=== PATIENT | female | born 2000 ===

== ENCOUNTER 2020-08-07 07:50 | Inpatient (IN) | payer MEDICAID ==
[~2020-08-07 07:50] MED LIST: EPINEPHrine 1 MG/1 ML Amp ONE; Sodium Bicarbonate 4.2% 2.5 MEQ/5 ML SDV ONE; Sodium Chloride 0.9% 20 ML SDV ONE; fentaNYL 100 MCG/2 ML SDV ITHECAL ONE
[2020-08-07] MEDS ORDERED: Acetaminophen 325 MG Tab PO PRN (07:51)
[2020-08-07] MEDS ORDERED: Sodium Chloride 0.9% 10 ML Syringe FLUSH PRN (07:51)
[2020-08-07] MEDS ORDERED: Carboprost Tromethamine 250 MCG/1 ML Amp IM PRN (07:53)
[2020-08-07] MEDS ORDERED: Methylergonovine 0.2 MG/1 ML Amp IM PRN (07:53)
[2020-08-07] MEDS ORDERED: Tranexamic Acid 1,000 MG in Sodium Chloride 0.9% 100 ML IV PRN (07:53)
[2020-08-07] MEDS ORDERED: Misoprostol 400 MCG (4 X 100 MCG TAB) RECTAL PRN (07:53)
[2020-08-07] MEDS ORDERED: Ondansetron 4 MG/2 ML SDV IVPUSH PRN (07:53)
[2020-08-07] MEDS ORDERED: Lidocaine 1% 30 ML SDV INJECT PRN (07:53)
[2020-08-07] MEDS ORDERED: Lactated Ringers 1,000 ML IV SCH (08:00)
[2020-08-07] MEDS ORDERED: Oxytocin/Normal Saline 30 UNIT/500 ML BAG IV SCH (08:00)
--- NOTE | 2020-08-07 08:57 | PCM.LDHP ---
L&D History of Present Illness - General Date of Service: 08/07/20 Admit Problem/Dx: Patient Status Order with Admit Dx/Problem 08/07/20 07:51 Patient Status [ADT] Routine Admission Diagnosis/Problem Admission Diagnosis/Problem Term - History of Present Illness Introduction:: Patient is a at 40w0d who presents to Labor and Delivery for induction of labor. Baby has been active. She denies vaginal bleeding, leakage of fluids. Denies headache, vision changes, abdominal pain, lower extremity edema. She has been having occasional contractions. has been uncomplicated. Dating based off LMP, confirmed with 17 week ultrasound. She smoked sporadically during the . Was on medical marijuana in the past but has not used during . She had some itching a couple weeks ago but cholestasis work up was negative. This has since resolved. 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 Working at [employer]. Planning on moving back to [place] after baby is born. H&P Review of Systems - Review of Systems: Review Of Systems: See Below General: Denies: Fever, Chills, Weakness HEENT: Denies: Headaches, Sore Throat, Visual Changes Pulmonary: Denies: Shortness of Breath, Cough Cardiovascular: Denies: Chest Pain, Edema, Lightheadedness Gastrointestinal: Denies: Abdominal Pain, Constipation, Diarrhea, Nausea, Vomiting Genitourinary: Denies: Discharge Skin: Denies: Rash Neurological: Denies: Dizziness, Headache, Weakness L&D Exam - Exam Exam: See Below - Vital Signs Weight: 202 lb - OB Specific Contraction Intensity: Mild Movement: Active Heart Tones: Present Heart Tones per Min: 145 Heart Rate (FHR) Variability: Moderate (6-25 bmp) Presentation: Vertex - Horn Score Horn Score Cervix Position: Posterior Horn Score Consistency: Soft Horn Score Effacement: 51-70% Horn Score Dilation: 1-2 cm Horn Score 's Station: -3 Horn Score Total: 5 - Exam General: Alert, Oriented HEENT: Mucosa Moist & [place] Neck: Supple, Trachea Midline Lungs: Clear to Auscultation, Normal Respiratory Effort Cardiovascular: Regular Rate, Regular Rhythm, Normal S1, Normal S2 GI/Abdominal Exam: Normal Bowel Sounds, Soft, Non-Tender Extremities: Normal Inspection, Non-Tender, No Pedal Edema, Normal Capillary Refill Skin: Warm, Dry Neurological: Reflexes Equal Bilateral Psychiatric: Alert, Normal Affect, Normal Mood - Patient Data Result Diagrams: 08/07/20 09:35 - Problem List (1) Term SNOMED Code(s): 17073702 ICD Code: Z34.90 - ENCNTR FOR SUPRVSN OF NORMAL , UNSP, UNSP TRIMESTER Status: Acute Current Visit: Yes (2) Primigravida SNOMED Code(s): 822735211 ICD Code: Z34.00 - ENCNTR FOR SUPRVSN OF NORMAL FIRST , UNSP TRIMESTER Status: Acute Current Visit: Yes (3) Maternal anemia in , antepartum SNOMED Code(s): 029664647 ICD Code: O99.019 - ANEMIA COMPLICATING , UNSPECIFIED TRIMESTER Status: Acute Current Visit: Yes (4) Thrombocytopenia affecting , antepartum SNOMED Code(s): 642454029 ICD Code: O99.119 - OTH DIS OF BLD/BLD-FORM ORG/IMMUN MECHNSM COMP PREG,UNSP TRI; D69.6 - THROMBOCYTOPENIA, UNSPECIFIED Status: Acute Current Visit: Yes Problem List Initiated/Reviewed/Updated: Yes Orders Last 24hrs: Active Orders 24 hr Category Date Time Status Patient Status [ADT] Routine ADT 08/07/20 07:51 Active Communication Order [RC] ASDIRECTED Care 08/07/20 07:51 Active Communication Order [RC] ASDIRECTED Care 08/07/20 07:53 Active Notify Provider Vital Signs OB [RC] ASDIRECTED Care 08/07/20 07:51 Active Notify Provider [RC] PRN Care 08/07/20 07:51 Active Notify Provider [RC] PRN Care 08/07/20 07:51 Active Notify Provider [RC] PRN Care 08/07/20 07:53 Active Notify Provider [RC] STAT Care 08/07/20 07:51 Active Peripheral IV Care [RC] . DIRECTED Care 08/07/20 07:51 Active Pump Management, Intrathecal [RC] ASDIRECTED Care 08/07/20 12:00 Active Up ad Tonya [RC] PER UNIT ROUTINE Care 08/07/20 07:51 Active Vaginal Exam [RC] PRN Care 08/07/20 07:51 Active Vital Signs [RC] PER UNIT ROUTINE Care 08/07/20 07:51 Active Clear Liquid Diet [DIET] Diet 08/07/20 Breakfast Active CBC W/O DIFF,HEMOGRAM [HEME] Routine Lab 08/07/20 07:51 Ordered CORONAVIRUS COVID-19 [place] [MOLEC] Stat Lab 08/07/20 08:15 Ordered Acetaminophen [TylenoL] Med 08/07/20 07:51 Active 650 mg PO Q4H PRN Carboprost Tromethamine [Hemabate DS] Med 08/07/20 07:53 Active 250 mcg IM ASDIRECTED PRN Lactated Ringers [Ringers, Lactated] 1,000 ml Med 08/07/20 08:00 Active IV ASDIRECTED Lactated Ringers [Ringers, Lactated] 1,000 ml Med 08/07/20 08:00 Active IV ASDIRECTED Lidocaine 1% [Xylocaine-MPF 1%] Med 08/07/20 07:53 Active 30 ml INJECT ASDIRECTED PRN Methylergonovine [Methergine] Med 08/07/20 07:53 Active 0.2 mg IM ASDIRECTED PRN Ondansetron [Zofran] Med 08/07/20 07:53 Active 4 mg IVPUSH Q4H PRN Oxytocin/Normal Saline [Pitocin in NS 30 UNIT/500 ML] Med 08/07/20 08:00 Active 30 unit in 500 ml IV TITRATE Oxytocin/Normal Saline [Pitocin in NS 30 UNIT/500 ML] Med 08/07/20 08:00 Active 30 unit in 500 ml IV TITRATE Sodium Chloride 0.9% [Saline Flush] Med 08/07/20 07:51 Active 10 ml FLUSH ASDIRECTED PRN Tranexamic Acid [Cyklokapron] 1,000 mg Med 08/07/20 07:53 Active Sodium Chloride 0.9% [Normal Saline] 100 ml IV ONETIME miSOPROStoL [Cytotec] Med 08/07/20 08:53 Ordered 25 mcg VAG Q4H PRN miSOPROStoL [Cytotec] Med 08/07/20 07:53 Active 800 mcg RECTAL ASDIRECTED PRN Peripheral IV Insertion Adult [OM.PC] Urgent Oth 08/07/20 07:51 Ordered Saline Lock Insert [OM.PC] Routine Oth 08/07/20 07:53 Ordered Resuscitation Status Routine Resus Stat 08/07/20 07:53 Ordered Medication Orders Acetaminophen (Acetaminophen 325 Mg Tab) 650 mg PO Q4H PRN PRN Reason: Pain/Fever Carboprost Tromethamine (Carboprost Tromethamine 250 Mcg/1 Ml Amp) 250 mcg IM ASDIRECTED PRN PRN Reason: HEMORRHAGE Lactated Ringer's (Ringers, Lactated) 1,000 mls @ 999 mls/hr IV ASDIRECTED YVES Oxytocin/Sodium Chloride (Pitocin In Ns 30 Unit/500 Ml) 30 unit in 500 mls @ 2 mls/hr IV TITRATE YVES; Protocol Lactated Ringer's (Ringers, Lactated) 1,000 mls @ 125 mls/hr IV ASDIRECTED YVES Tranexamic Acid 1,000 mg/ (Sodium Chloride) 110 mls @ 660 mls/hr IV ONETIME PRN PRN Reason: Bleeding Oxytocin/Sodium Chloride (Pitocin In Ns 30 Unit/500 Ml) 30 unit in 500 mls @ 2 mls/hr IV TITRATE YVES; Protocol Lidocaine HCl (Lidocaine 1% 30 Ml Sdv) 30 ml INJECT ASDIRECTED PRN PRN Reason: Perineal Repair Methylergonovine Maleate (Methylergonovine 0.2 Mg/1 Ml Amp) 0.2 mg IM ASDIRE CTED PRN PRN Reason: Hemorrhage Misoprostol (Misoprostol 400 Mcg (4 X 100 Mcg Tab)) 800 mcg RECTAL ASDIRECTED PRN PRN Reason: Hemorrhage Misoprostol (Misoprostol 25 Mcg (1/4 Of 100 Mcg) Tab) 25 mcg VAG Q4H PRN PRN Reason: Other Ondansetron HCl (Ondansetron 4 Mg/2 Ml Sdv) 4 mg IVPUSH Q4H PRN PRN Reason: Nausea/Vomiting Sodium Chloride (Sodium Chloride 0.9% 10 Ml Syringe) 10 ml FLUSH ASDIRECTED PRN PRN Reason: Keep Vein Open Assessment/Plan Comment:: Admit to Labor and Delivery. Cytotec X1 for induction. Pitocin for augmentation. AROM when able. GBS negative. Intrathecal as desired. Anticipate vaginal delivery. Alissa Wilhelm MD
[2020-08-07] MEDS ORDERED: fentaNYL 100 MCG/2 ML SDV ONE ×2 (09:43→21:05)
[2020-08-07] MEDS: Lactated Ringers 1,000 ML IV SCH ×2 (09:45→18:22)
[2020-08-07] MEDS: Misoprostol 25 MCG (1/4 of 100 MCG) Tab VAG PRN ×2 (10:14→14:05)
[2020-08-07] MEDS: Oxytocin/Normal Saline 30 UNIT/500 ML BAG IV SCH (18:39)
[2020-08-07] MEDS ORDERED: EPINEPHrine 1 MG/1 ML Amp ONE (21:05)
[2020-08-07] MEDS ORDERED: Sodium Bicarbonate 4.2% 2.5 MEQ/5 ML SDV ONE (21:06)
--- NOTE | 2020-08-07 21:33 | PCM.SN.2 ---
- Free Text/Narrative Note: Intrathecal. Sitting position, sterile prep and drape. 1% lidocaine w bicarb for skinwheal to L3 L4 interspace. Introducer, 24 ga pencan x 1. Pos CSF neg heme, neg parasthesia. 0.1 ml 1:1000 pf epi, 20 mcg pf sufenta, 30 mcg pf fentanyl, 0.4 ml pf NS and 6 mg of 0.75% pf bupivacaine injected after CSF aspiration. Pt to L lateral position. Procedure time 2109 to 2144
[2020-08-07] MEDS ORDERED: ePHEDrine 50 MG/ML SDV ONE (21:34)
[2020-08-07] MEDS ORDERED: ePHEDrine 50 MG/ML SDV IVPUSH PRN (21:40)
[2020-08-08] MEDS ORDERED: Zolpidem 5 MG Tab PO PRN (03:27)
[2020-08-08] MEDS ORDERED: Benzocaine/Menthol 20%-0.5% Spray 56 GM Canister TOP PRN (03:27)
[2020-08-08] MEDS ORDERED: Acetaminophen 325 MG Tab PO PRN (03:27)
[2020-08-08] MEDS ORDERED: Simethicone 80 MG Tab.Chew PO PRN (03:27)
[2020-08-08] MEDS ORDERED: Oxytocin 10 Units/1 ML SDV IM PRN (03:27)
--- NOTE | 2020-08-08 03:31 | PCM.DEL ---
L & D Note - General Info Date of Service: 08/08/20 Mother's Due Date: 08/07/20 - Delivery Note Labor: Augmented by Oxytocin Cervical Ripening Method: Misoprostil Delivery Outcome: Livebirth Infant Delivery Method: Spontaneous Vaginal Delivery-Single Delivery Mode: Spontaneous Presentation: Left Occiput Anterior (FABIAN) Nuchal Cord: None Prep: Povidone-Iodine (Betadine Anesthesia Type: Intrathecal Anesthetic: Lidocaine (Xylocaine) 1% Plain Local Anesthetic Volume: Other (8 cc) Amniotic Fluid Description: Meconium Stained Episiotomy Type: None Laceration: 1st Degree, Perineal Suture type: Vicryl Suture size: 3-0 Placenta: Intact, Spontaneous Cord: 3 Vessels Estimated Blood Loss: 350 Resuscitation Needed: No [place]: Bulb Syringe, Stimulated Provider: Alissa Wilhelm Score 1 min: 9 Score 5 min: 9 Delivery Comments (Free Text/Narrative):: Patient is a female who was admitted to L & D for elective induction of labor at 40w0d. was uncomplicated. She received 2 doses of Cytotec and was then started on Pitocin. She did have SROM for mec stained fluid. She received an intrathecal. She progressed to complete dilation and pushed for 2 hours. Viable female infant was delivered via . The anterior shoulder was delivered with gentle traction. The infant was placed on maternal abdomen and the cord was clamped and cut. Placenta was delivered intact via active management. Oxytocin was initiated immediately following the delivery of the placenta. Cervix, vagina, and perineum were explored. A 1st degree perineal laceration was repaired in the usual fashion. Mother and were stable and remained in the delivery room. - General Info Date of Service: 08/08/20 - Patient Data Vitals - Most Recent: Last Vital Signs Temp 96.2 F L 08/07/20 22:05 Pulse 74 08/07/20 22:45 Resp 12 08/07/20 22:45 BP 103/56 L 08/07/20 22:45 Pulse Ox 94 L 08/07/20 22:45 Weight - Most Recent: 202 lb I&O - Last 24 Hours: Intake & Output 08/07/20 08/07/20 08/08/20 14:59 22:59 06:59 Intake Total 2500 Output Total 680 Balance 1820 Lab Results Last 24 Hours: Laboratory Results - last 24 hr 08/07/20 08/07/20 Range/Units 08:15 09:35 WBC 11.5 H (5.0-10.0) 10^3/uL RBC 3.87 L (4.2-5.4) 10^6/uL Hgb 11.4 L (12.0-16.0) g/dL Hct 33.7 L (37.0-47.0) % MCV 87.1 (80-100) fL MCH 29.5 (27.0-34.0) pg MCHC 33.8 (33.0-35.0) g/dL Plt Count 110 L (150-450) 10^3/uL SARS-CoV-2 RNA ([place]) Negative (NEGATIVE) Med Orders - Current: Current Medications Acetaminophen (Acetaminophen 325 Mg Tab) 650 mg PO Q6H PRN PRN Reason: Mild Pain (1-3) or Fever Benzocaine/Menthol (Benzocaine/Menthol 20%-0.5% [place] 56 Gm Canister) 0 gm TOP Q4H PRN PRN Reason: Perineal comfort measures Carboprost Tromethamine (Carboprost Tromethamine 250 Mcg/1 Ml Amp) 250 mcg IM ASDIRECTED PRN PRN Reason: HEMORRHAGE Docusate Sodium (Docusate Sodium 100 Mg Cap) 100 mg PO BID PRN PRN Reason: Constipation Ferrous Sulfate (Ferrous Sulfate 325 Mg Tab) 325 mg PO WITHBREAKFAST YVES Lactated Ringer's (Ringers, Lactated) 1,000 mls @ 999 mls/hr IV ASDIRECTED [facility] Last Admin: 08/07/20 21:34 Dose: 999 mls/hr Documented by: Oxytocin/Sodium Chloride (Pitocin In Ns 30 Unit/500 Ml) 30 unit in 500 mls @ 2 mls/hr IV TITRATE YVES; Protocol Last Admin: 08/07/20 18:39 Dose: 2 munits/min, 2 mls/hr Documented by: Lactated Ringer's (Ringers, Lactated) 1,000 mls @ 125 mls/hr IV ASDIRECTED YVES Last Admin: 08/07/20 18:22 Dose: 125 mls/hr Documented by: Tranexamic Acid 1,000 mg/ (Sodium Chloride) 110 mls @ 660 mls/hr IV ONETIME PRN PRN Reason: Bleeding Oxytocin/Sodium Chloride (Pitocin In Ns 30 Unit/500 Ml) 30 unit in 500 mls @ 2 mls/hr IV TITRATE YVES; Protocol Ibuprofen (Ibuprofen 800 Mg Tab) 800 mg PO Q8H PRN PRN Reason: Cramping Lidocaine HCl (Lidocaine 1% 30 Ml Sdv) 30 ml INJECT ASDIRECTED PRN PRN Reason: Perineal Repair Last Admin: 08/08/20 02:59 Dose: 30 ml Documented by: Methylergonovine Maleate (Methylergonovine 0.2 Mg/1 Ml Amp) 0.2 mg IM ASDIRECTED PRN PRN Reason: Hemorrhage Misoprostol (Misoprostol 400 Mcg (4 X 100 Mcg Tab)) 800 mcg RECTAL ASDIRECTED PRN PRN Reason: Hemorrhage Ondansetron HCl (Ondansetron 4 Mg/2 Ml Sdv) 4 mg IVPUSH Q4H PRN PRN Reason: Nausea/Vomiting Last Admin: 08/07/20 22:04 Dose: 4 mg Documented by: Oxytocin (Oxytocin 10 Units/1 Ml Sdv) 10 unit IM ONETIME PRN PRN Reason: Bleeding Prenat Multivit/Lavonia/Iron/Folic Ac ( Multivitamin With Calcium/Folic Acid/Iron Tab) 1 each PO DAILY YVES Simethicone (Simethicone 80 Mg Tab.Chew) 80 mg PO Q4H PRN PRN Reason: Gas Sodium Chloride (Sodium Chloride 0.9% 10 Ml Syringe) 10 ml FLUSH ASDIRECTED PRN PRN Reason: Keep Vein Open Zolpidem Tartrate (Zolpidem 5 Mg Tab) 5 mg PO BEDTIME PRN PRN Reason: Insomnia Discontinued Medications Acetaminophen (Acetaminophen 325 Mg Tab) 650 mg PO Q4H PRN PRN Reason: Pain/Fever Ephedrine Sulfate (Ephedrine 50 Mg/Ml Sdv) Confirm Administered Dose 50 mg .ROUTE .STK-MED ONE Stop: 08/07/20 21:35 Last Admin: 08/07/20 21:46 Dose: Not Given Documented by: Ephedrine Sulfate (Ephedrine 50 Mg/Ml Sdv) 10 mg IVPUSH ONETIME PRN PRN Reason: Hypotension Last Admin: 08/07/20 21:38 Dose: 10 mg Documented by: Epinephrine HCl (Epinephrine 1 Mg/1 Ml Amp) Confirm Administered Dose 1 mg .ROUTE .STK-MED ONE Stop: 08/07/20 21:06 Last Admin: 08/07/20 21:47 Dose: Not Given Documented by: Fentanyl (Fentanyl 100 Mcg/2 Ml Sdv) Confirm Administered Dose 100 mcg .ROUTE .STK-MED ONE Stop: 08/07/20 09:44 Last Admin: 08/08/20 02:59 Dose: Not Given Documented by: Fentanyl (Fentanyl 100 Mcg/2 Ml Sdv) Confirm Administered Dose 100 mcg .ROUTE .STK-MED ONE Stop: 08/07/20 21:06 Last Admin: 08/07/20 21:48 Dose: Not Given Documented by: Misoprostol (Misoprostol 25 Mcg (1/4 Of 100 Mcg) Tab) 25 mcg VAG Q4H PRN PRN Reason: Other Last Admin: 08/07/20 14:05 Dose: 25 mcg Documented by: Sodium Bicarbonate (Sodium Bicarbonate 4.2% 2.5 Meq/5 Ml Sdv) Confirm Administered Dose 2.5 meq .ROUTE .STK-MED ONE Stop: 08/07/20 21:07 Last Admin: 08/07/20 21:48 Dose: Not Given Documented by: Sufentanil Citrate (Sufentanil 50 Mcg/1 Ml Amp) Confirm Administered Dose 50 mcg .ROUTE .STK-MED ONE Stop: 08/07/20 21:06 Last Admin: 08/07/20 21:48 Dose: Not Given Documented by: - Problem List & Annotations (1) Term SNOMED Code(s): 33472338 Code(s): Z34.90 - ENCNTR FOR SUPRVSN OF NORMAL , UNSP, UNSP TRIMESTER Status: Acute Current Visit: Yes (2) Primigravida SNOMED Code(s): 024638154 Code(s): Z34.00 - ENCNTR FOR SUPRVSN OF NORMAL FIRST , UNSP TRIMESTER Status: Acute Current Visit: Yes (3) Maternal anemia in , antepartum SNOMED Code(s): 838674454 Code(s): O99.019 - ANEMIA COMPLICATING , UNSPECIFIED TRIMESTER Status: Acute Current Visit: Yes (4) Thrombocytopenia affecting , antepartum SNOMED Code(s): 721752510 Code(s): O99.119 - OTH DIS OF BLD/BLD-FORM ORG/IMMUN MECHNSM COMP PREG,UNSP TRI; D69.6 - THROMBOCYTOPENIA, UNSPECIFIED Status: Acute Current Visit: Yes - Problem List Review Problem List Initiated/Reviewed/Updated: Yes - My Orders Last 24 Hours: My Active Orders 08/07/20 07:51 Patient Status [ADT] Routine Peripheral IV Care [RC] 08,20 Sodium Chloride 0.9% [Saline Flush] 10 ml FLUSH ASDIRECTED PRN Peripheral IV Insertion Adult [OM.PC] Urgent 08/07/20 07:53 Communication Order [RC] ASDIRECTED Carboprost Tromethamine [Hemabate DS] 250 mcg IM ASDIRECTED PRN Lidocaine 1% [Xylocaine-MPF 1%] 30 ml INJECT ASDIRECTED PRN Methylergonovine [Methergine] 0.2 mg IM ASDIRECTED PRN Ondansetron [Zofran] 4 mg IVPUSH Q4H PRN Tranexamic Acid [Cyklokapron] 1,000 mg Sodium Chloride 0.9% [Normal Saline] 100 ml IV ONETIME miSOPROStoL [Cytotec] 800 mcg RECTAL ASDIRECTED PRN Saline Lock Insert [OM.PC] Routine Resuscitation Status Routine 08/07/20 08:00 Lactated Ringers [Ringers, Lactated] 1,000 ml IV ASDIRECTED Lactated Ringers [Ringers, Lactated] 1,000 ml IV ASDIRECTED Oxytocin/Normal Saline [Pitocin in NS 30 UNIT/500 ML] 30 unit in 500 ml IV TITRATE Oxytocin/Normal Saline [Pitocin in NS 30 UNIT/500 ML] 30 unit in 500 ml IV TITRATE 08/07/20 20:25 Nitrous Oxide Delivery [RC] ASDIRECTED OB Discontinue Nitrous Oxide [RC] ASDIRECTED 08/08/20 03:00 Vital Signs [RC] PFP 08/08/20 03:27 Notify Provider Vital Signs OB [RC] ASDIRECTED Up ad Tonya [RC] ASDIRECTED Acetaminophen [TylenoL] 650 mg PO Q6H PRN Benzocaine/Menthol [Dermoplast Pain Relief [place]] See Dose Instructions TOP Q4H PRN Docusate Sodium [Colace] 100 mg PO BID PRN Ibuprofen [Motrin] 800 mg PO Q8H PRN Oxytocin [Pitocin] 10 unit IM ONETIME PRN Simethicone 80 mg PO Q4H PRN Zolpidem [Ambien] 5 mg PO BEDTIME PRN Assess Lochia [WOMSER] Per Unit Routine Assess Uterine Involution [WOMSER] Per Unit Routine Breast Pump [WOMSER] Per Unit Routine Ice Therapy [OM.PC] Per Unit Routine Perineal Care [OM.PC] Per Unit Routine Saline Lock Insert [OM.PC] Urgent Sitz Bath [OM.PC] Per Unit Routine 08/08/20 Breakfast Regular Diet [DIET] 08/08/20 08:00 Ferrous Sulfate 325 mg PO WITHBREAKFAST 08/08/20 09:00 Vit with Ca/FA/Iron [ Plus Iron] 1 each PO DAILY 08/08/20 Lunch Regular Diet [DIET] 08/08/20 Dinner Regular Diet [DIET] 08/09/20 06:00 CBC W/O DIFF,HEMOGRAM [HEME] Routine
[2020-08-08] MEDS ORDERED: Witch Hazel Medicated Pads 100/Jar TOP PRN (03:38)
[2020-08-08] MEDS: Oxytocin/Normal Saline 30 UNIT/500 ML BAG IV SCH (04:09)
[2020-08-08] MEDS: Ibuprofen 800 MG Tab PO PRN ×3 (04:27→21:27)
[2020-08-08] MEDS: Prenatal Multivitamin with Calcium/Folic Acid/Iron Tab PO SCH (12:56)
[2020-08-08] MEDS: Docusate Sodium 100 MG Cap PO PRN ×2 (12:56→21:26)
[2020-08-08] MEDS: Ferrous Sulfate 325 MG Tab PO SCH (13:02)
[2020-08-09] MEDS: Docusate Sodium 100 MG Cap PO PRN (09:04)
[2020-08-09] MEDS: Prenatal Multivitamin with Calcium/Folic Acid/Iron Tab PO SCH (09:05)
[2020-08-09] MEDS: Ibuprofen 800 MG Tab PO PRN (09:05)
[2020-08-09] MEDS: Ferrous Sulfate 325 MG Tab PO SCH (09:05)
--- NOTE | 2020-08-11 10:12 | DISCH ---
REASON FOR ADMISSION: Induction of labor at 40 weeks 0 day. OBSTETRIC HISTORY: The patient is a G1, P0, who has undergone an uncomplicated . Dating is based on last menstrual period, confirmed with 17-week ultrasound. DELIVERY: Sex: Female. Weight: 3700 g. 8# 2.5oz. scores: 9 and 9 at one and five minutes respectively. PROCEDURES: Intrapartum: No procedures required. PROBLEM LIST: 1. Term , 40 weeks 0 day. 2. Primi . 3. GBS negative. 4. Maternal anemia in . Hemoglobin on admission was 11.4. 5. Thrombocytopenia affecting . Platelet count on admission was 110. FINAL DIAGNOSES: 1. Encounter for induction of labor of a term at 40 weeks 0 day, resulting in delivery with a 3700 g viable female with scores of 9 and 9 at one and five minutes respectively at 40 weeks 1 day. 2. G1, P0-1-0-1. 3. Maternal anemia with hemoglobin at discharge 9.4. 4. EBL 350 mL. 5. Thrombocytopenia affecting . Platelets at discharge 234. 6. Group B Streptococcus negative. 7. First-degree perineal laceration repaired in the usual fashion. CONSULT AND REFERRAL: Anesthesia for intrathecal x1. DISCHARGE CONDITION: Good. PROGRESS NOTE: SUBJECTIVE: The patient is feeling very well this morning. She is feeling very happy and has had no issues or complaints overnight. She denies chest pain, shortness of breath, nausea, vomiting, fevers, chills. She is ambulating about her room without issue. She denies any light headedness, dizziness, pain in calves. She is voiding without issue, but has not had a bowel movement during this hospital stay. She is tolerating p.o. intake as appropriate. Her lochia is appropriate and her pain is well controlled. OBJECTIVE: Current Vital Signs: Temperature 98.9 degrees Fahrenheit, pulse 82 beats per minute and regular, blood pressure 133/69, respiratory rate 16 breaths per minute, O2 sat by pulse oximetry 100%. LABORATORY RESULTS AT DISCHARGE: WBC 14.1, RBC 3.24, hemoglobin 9.4, hematocrit 28.5, MCV 88.0, MCH 29.0, MCHC 33.0, platelet count 234. SARS-CoV-2 RNA ([place]) negative. PHYSICAL EXAMINATION: General: Appears pleasant, alert, and in no acute distress with an appropriate affect. Abdomen: Soft, nontender. Fundus is firm. Extremities: Nontender. Non-concerning scant lower extremity edema. ASSESSMENT AND PLAN: 1. Milli Bansal is a G1, now P1-0-0-1 status post spontaneous vaginal delivery with spontaneous rupture of membranes, who presented for elective induction of labor at 40 weeks 0 day. 2. Maternal well being: Meeting milestones. 3. well being: [place] [facility], , and will supplement with formula feeds as needed. 4. Disposition: Routine cares. Advance activity as tolerated. Discharge home day #1. 5. Contraception to be discussed at 6 weeks care visit. DISCHARGE MEDICATIONS: 1. Ferrous sulfate 325 mg 1 tab p.o. daily. 2. vitamin 1 tab p.o. daily. HOSPITAL COURSE: The patient presented for elective induction of labor. Delivery occurred without significant issue. was uncomplicated. Spontaneous rupture of membranes was accomplished with mec-stained fluid. Pain control was accomplished via an intrathecal x1. Viable female was delivered via normal spontaneous vaginal delivery. Anterior shoulder was delivered with gentle traction. Placenta was delivered intact via active management. Oxytocin was initiated immediately following delivery of the placenta. First-degree perineal laceration was identified and repaired in the usual fashion. Recovery has been uncomplicated. The patient is currently with much success and has had no issues or complaints. The patient was felt to be discharged home in good condition. DISCHARGE DISPOSITION: Home. FOLLOWUP APPOINTMENTS: Six weeks visit with Dr. Alissa Wilhelm. [facility] /[id number] Patient seen and examined. Agree with note as written by VERONICA Bowie. -[facility] 08/15/2020 0852. MTDD
== END 2020-08-09 10:33 | disposition home or self-care (01) | DRG 806 ==
LOC: DL.OBCHECK 07:50 → INTOOBSV 07:51 → UNDOADMOB 07:51 → DL.OB 07:51 → OBSVTOIN 07:51 → DL.OB 08-08 02:46 → UNDODISIN 08-09 10:33
PROVIDERS: ADMIT Family Medicine; ATTEND Family Medicine
PROC: 10E0XZZ Delivery of Products of Conception, External Approach (ICD-10-PCS; principal; 2020-08-08)
PROC: 0HQ9XZZ Repair Perineum Skin, External Approach (ICD-10-PCS; 2020-08-08)
PROC: 3E0P7VZ Introduction of Hormone into Female Reproductive, Via Natural or Artificial Opening (ICD-10-PCS; 2020-08-08)
PROC: 3E0R3BZ Introduction of Anesthetic Agent into Spinal Canal, Percutaneous Approach (ICD-10-PCS; 2020-08-08)
PROC: 00HU33Z Insertion of Infusion Device into Spinal Canal, Percutaneous Approach (ICD-10-PCS; 2020-08-08)
DX: O99.02 Anemia complicating childbirth (principal); O99.12 Other diseases of the blood and blood-forming organs and certain disorders involving the immune mechanism complicating childbirth; Z37.0 Single live birth; O70.0 First degree perineal laceration during delivery; O77.0 Labor and delivery complicated by meconium in amniotic fluid; Z3A.40 40 weeks gestation of pregnancy; D64.9 Anemia, unspecified; D69.6 Thrombocytopenia, unspecified; Z20.822 Contact with and (suspected) exposure to COVID-19
CPT/HCPCS: 01967; 36415; 51701; 59025; 59409; 85027; A9270-GY; J0171; J2405; J2590; J3010; J7120; U0002

== ENCOUNTER 2021-05-23 11:08 | Emergency (ER) | payer SELFPAY ==
--- NOTE | 2021-05-23 11:26 | EDM.PDOC ---
Scribed by Tomasa Miller 05/23/21 1121 for Mariusz Sun MD ED HPI GENERAL MEDICAL PROBLEM - General Chief Complaint: General Stated Complaint: FELL DOWN STEPS 05/19 FEELS FLUID ON HER BOTTOM Time Seen by Provider: 05/23/21 11:15 Source of Information: Reports: Patient, RN, RN Notes Reviewed History Limitations: Reports: No Limitations - History of Present Illness INITIAL COMMENTS - FREE TEXT/NARRATIVE: Pt presents to ER with c/o left buttock pain and bruising. Pt slipped and fell in the ice on 05/19/21 and landed on her left buttock. Denies any other injury or area(s) of pain. Onset: Sudden Onset Date: 05/19/21 Duration: Constant Quality: Reports: Ache Severity: Moderate Improves with: Reports: None Worsens with: Reports: None Associated Symptoms: Reports: No Other Symptoms - Related Data Allergies Allergy/AdvReac Type Severity Reaction Status Date / Time amoxicillin Allergy Rash Verified 08/07/20 08:41 Home Meds: Home Meds Acetaminophen [Tylenol] 650 mg PO Q6H PRN tablet 08/09/20 [Rx] Docusate Sodium [Colace] 100 mg PO BID PRN cap 08/09/20 [Rx] Ferrous Sulfate 325 mg PO WITHBREAKFAST tablet 08/09/20 [Rx] Ibuprofen [Motrin] 800 mg PO Q8H PRN tablet 08/09/20 [Rx] Vit with Ca/FA/Iron [ Plus Iron] 1 each PO DAILY tablet 08/09/20 [Rx] Past Medical History HEENT History: Reports: None Cardiovascular History: Reports: None Respiratory History: Reports: None Gastrointestinal History: Reports: None Genitourinary History: Reports: None [employer] History: Reports: None Musculoskeletal History: Reports: None Neurological History: Reports: None Psychiatric History: Reports: Anxiety Endocrine/Metabolic History: Reports: None Hematologic History: Reports: Anemia Dermatologic History: Reports: None - Infectious Disease History Infectious Disease History: Reports: Chicken Pox Social & Family History - Family History GI: Reports: Cirrhosis - Caffeine Use Caffeine Use: Reports: Coffee - Living Situation & Occupation Living situation: Reports: with Significant Other Occupation: Employed ED ROS GENERAL - Review of Systems Review Of Systems: Comprehensive ROS is negative, except as noted in HPI. ED EXAM, GENERAL - Physical Exam Exam: See Below Exam Limited By: No Limitations General Appearance: Alert, WD/WN, No Apparent Distress Head: Atraumatic, Normocephalic Neck: Normal Inspection, Full Range of Motion Respiratory/Chest: No Respiratory Distress Cardiovascular: Normal Peripheral Pulses Back Exam: Full Range of Motion, Other (Tender hematoma at left buttock, approx. 16cm x 12cm, no redness, no increased warmth, or signs of infection). No: Vertebral Tenderness Extremities: Normal Inspection, Normal Range of Motion Neurological: Alert, Oriented, Normal Gait, No Motor/Sensory Deficits Psychiatric: Normal Mood Skin Exam: Warm, Dry Departure - Departure Time of Disposition: 11:20 Disposition: Home, Self-Care 01 Condition: Good Clinical Impression: Traumatic hematoma of buttock Qualifiers: Encounter type: initial encounter Qualified Code(s): S30.0XXA - Contusion of lower back and pelvis, initial encounter - Discharge Information *PRESCRIPTION DRUG MONITORING PROGRAM REVIEWED*: Not Applicable *COPY OF PRESCRIPTION DRUG MONITORING REPORT IN PATIENT YONIS: Not Applicable Instructions: Hematoma Forms: ED Department Discharge Additional Instructions: No specific treatment needed. May alternate heat and ice, or Epsom Salt moist hot packs. I have read and agree with the documentation that has been completed regarding this visit. By signing this record, I attest that the documentation was completed in my physical presence and is an accurate record of the encounter.
== END 2021-05-23 11:34 | disposition home or self-care (01) ==
LOC: DL.ED 11:08
DX: S30.0XXA Contusion of lower back and pelvis, initial encounter (principal); Z88.0 Allergy status to penicillin; W00.0XXA Fall on same level due to ice and snow, initial encounter
CPT/HCPCS: 99283

== ENCOUNTER 2021-11-26 18:08 | Emergency (ER) | payer MEDICAID ==
[2021-11-26] MEDS ORDERED: Tetracaine HCl/PF 0.5% 4 ML Bottle ONE (18:29)
== END 2021-11-26 18:50 | disposition home or self-care (01) ==
LOC: DL.ED 18:08
DX: H66.92 Otitis media, unspecified, left ear (principal); Z88.0 Allergy status to penicillin; Z79.899 Other long term (current) drug therapy
CPT/HCPCS: 99282

== ENCOUNTER 2023-05-12 19:34 | Emergency (ER) | payer SELFPAY ==
[2023-05-12] MEDS ORDERED: Ondansetron 4 MG Tab.DIS PO ONE (19:49)
[2023-05-12] MEDS ORDERED: Ketorolac 30 MG/ML SDV IM ONE (19:49)
[2023-05-12 20:24] LABS: INFLUENZA A NAA POSITIVE (NEGATIVE); INFLUENZA B NAA NEGATIVE (NEGATIVE)
[2023-05-12 20:27] LABS: CORONAVIRUS COVID-19 NAA POSITIVE (NEGATIVE)
[2023-05-12] MEDS ORDERED: Take Home: Ondansetron 4 MG Tab.DIS, 5 Tab Pack PO ONE (20:32)
== END 2023-05-12 20:51 | disposition home or self-care (01) ==
LOC: DL.ED 19:34
DX: U07.1 COVID-19 (principal); J10.1 Influenza due to other identified influenza virus with other respiratory manifestations; Z88.1 Allergy status to other antibiotic agents
CPT/HCPCS: 0240U; 96372; 99284; A9270; J1885; Q0162

== ENCOUNTER 2023-05-14 01:27 | Emergency (ER) | payer SELFPAY ==
[2023-05-14] MEDS ORDERED: hydrOXYzine HCl 25 MG Tab PO ONE (01:49)
== END 2023-05-14 02:23 | disposition home or self-care (01) ==
LOC: DL.ED 01:27
DX: U07.1 COVID-19 (principal); J10.1 Influenza due to other identified influenza virus with other respiratory manifestations; F41.9 Anxiety disorder, unspecified; Z88.0 Allergy status to penicillin; Z79.899 Other long term (current) drug therapy
CPT/HCPCS: 99283; A9270